=== PATIENT | male | born 1960 | race Caucasian/White ===

== ENCOUNTER → 2023-11-19 15:37 | Outpatient (REF) | payer OTHER, SELFPAY | LOC: RAD 15:37 | PROVIDERS: ATTENDING PHYSICIAN Nurse Practitioner Family; FAMILY PHYSICIAN Internal Medicine | DX: M25.561 Pain in right knee (principal); M25.562 Pain in left knee | CPT/HCPCS: 73564 ==

== ENCOUNTER 2025-01-06 06:20 | Day surgery (SDC) | payer OTHER, SELFPAY | END 2025-01-06 09:35 | disposition home or self-care (01) | LOC: GI 06:20 | PROVIDERS: ATTENDING PHYSICIAN Internal Medicine Gastroenterology | DX: Z12.11 Encounter for screening for malignant neoplasm of colon (principal); K57.30 Diverticulosis of large intestine without perforation or abscess without bleeding; D12.2 Benign neoplasm of ascending colon; K63.5 Polyp of colon; K62.1 Rectal polyp; Z86.0100 Personal history of colon polyps, unspecified; Z80.0 Family history of malignant neoplasm of digestive organs | CPT/HCPCS: 45385; 45380; 88305 ==

== ENCOUNTER 2025-02-16 20:04 | Emergency (ER) | payer OTHER, SELFPAY ==
[2025-02-16 20:05] VITALS: BP 162/84
[2025-02-16 20:27] LABS: Urine Albumin 1+ (Neg - Trace); Urine Bilirubin Negative (Negative); Urine Character Clear (Clear); Urine Color Yellow; Urine Glucose Negative (Negative); Urine Ketone Negative (Negative); Urine Leukocyte 2+ (Negative); Urine Nitrite Negative (Negative); Urine Occult Blood 4+ (Negative); Urine Urobilinogen Negative (Neg - 1+)
[2025-02-16 20:51] LABS: Urine Bacteria Few (Negative)
[2025-02-16 20:59] LABS: % Basophils 0.3 % (0-2); % Eosinophils 0.7 % (0-6); % Immature Granulocytes 0.3 % (0-0.5); % Lymphocytes 20.3 % (20.5-51.1); % Monocytes 6.6 % (1.7-9.3); % Neutrophils 71.8 % (42.2-75.2); Absolute Eosinophils 0.1 10^3/uL (0-0.7); Absolute Lymphocytes 1.4 10^3/uL (1.2-3.4); Absolute Monocytes 0.5 10^3/uL (0.1-0.6); Absolute Neutrophils 4.9 10^3/uL (1.4-6.5); Hematocrit 42.3 % (39.0-52.0); Hemoglobin 14.8 g/dL (13.0-18.0); Mean Corpuscular Hgb 30.6 pg (27.0-31.0); Mean Corpuscular Volume 87.6 fL (80.0-94.0); Mean Platelet Volume 8.8 fL (7.4-10.4); Nucleated Red Blood Cells % 0 % (-); Platelet Count 182 10^3/uL (130-400); Red Blood Cell Count 4.83 10^6/uL (4.70-6.10); Red Cell Dist. Width 11.6 % (11.5-14.5); White Blood Cell Count 6.9 10^3/uL (4.8-10.8)
[2025-02-16 21:14] LABS: ALT (SGPT) 22 U/L (0-50); AST (SGOT) 22 U/L (17-59); Albumin 4.4 g/dl (3.5-5.0); Alkaline Phosphatase 71 U/L (38-126); Blood Urea Nitrogen 41 mg/dl (9-20); Calcium 9.4 mg/dl (8.4-10.2); Carbon Dioxide 23 mmol/L (22-30); Chloride 108 mmol/L (98-107); Glucose 96 mg/dl (70-99); Potassium 4.8 mmol/L (3.5-5.1); Sodium 138 mmol/L (135-145); Total Bilirubin 0.9 mg/dl (0.2-1.3); Total Protein 6.6 g/dl (6.3-8.2); eGFR 48.11
[2025-02-16] MEDS: PERCOCET 5/325 1 TABLET PO (21:37)
--- NOTE | 2025-02-17 00:07 | ED.GENMED ---
History of Present Illness
General
Chief Complaint: Flank Pain
Source: patient
Exam Limitations: none
Time Seen by Provider: 02/17/25 00:03
Nursing documentation reviewed up to this point in time: agreed with
History of Present Illness
History of Present Illness:
Note:
CHIEF COMPLAINT(S)
Right-sided low back pain radiating down the leg.
HISTORY OF PRESENT ILLNESS
The patient is a 64-year-old male with pmh of htn, hlp, who reports experiencing right-sided low back pain that began after lifting heavy cabinets and worsened after sitting for lunch about an hour later. The pain is described as a 'little ping in
the back' that progressively worsened, with the inability to find comfort until after using a heating pad, which provided temporary relief. Despite using a heating pad and massaging the area, the pain persisted and radiated down the leg, but walking
seems to alleviate the discomfort. The patient denies any numbness or tingling but describes the pain as sometimes feeling similar to spasms. A computed tomography scan was performed, and no kidney stones or concerning bony abnormalities were found.
It appears to be a muscular sprain. The patient also reports a history of stage 3 chronic kidney disease and dehydration, as indicated by an elevated chemistry panel on blood work, suggesting further testing in the following week. Patient has not
tried anything for the pain. He denies urinary or fecal incontinence, genital paresthesias, fevers or chills, burning with urination, pelvic pain, abdominal pain.
ADDITIONAL HISTORY OBTAINED FROM SOURCES OTHER THAN THE PATIENT
According to previous emergency room records, the patients imaging showed a normal appendix and an unremarkable gallbladder, ruling out other intra-abdominal causes for pain.
CHRONIC MEDICAL CONDITIONS SIGNIFICANTLY AFFECTING CARE
Stage 3 chronic kidney disease:
Initially I was concerned about an BETO of unclear origin and wanted to start fluids however patient states that he already follows with nephrology and was diagnosed with CKD III. Patient has repeat blood work already scheduled next week with his
foreign banknote teller.
PHYSICAL EXAM
General: Patient is well appearing and in no acute distress; non-toxic
Skin: Warm and dry, no rashes or lesions
Head: Normocephalic, atraumatic
Eyes: Sclera non-icteric. EOMs intact.
Cardiac: Regular rate
Pulm: Normal respiratory effort
Abdomen: No abdominal tenderness to palpation
Musculoskeletal: Right sided paralumbar tenderness noted to palpation, no midline spinal tenderness
Neuro: CN II-XII intact, no focal neurologic deficits. 5/5 strength in bilateral lower extremities
Psychiatric: Appropriate mood and affect.
PROBLEM LIST
Acute Problems:
- Right-sided low back pain, likely muscular in nature
Chronic Problems:
- Stage 3 chronic kidney disease
PLAN
1. Administer a dose of a long-acting muscle relaxant (flexeril) and consider prescribing it for overnight use for pain management.
2. Apply lidocaine patch to the affected area for additional pain relief.
3. Follow-up with foreign banknote teller as scheduled for chronic kidney disease management.
4. Ensure adequate hydration to address elevated kidney function test levels.
5. Blood work to be repeated next week as per patients schedule.
DIFFERENTIAL DIAGNOSIS
The Differential Diagnosis includes, in no particular order and is not limited to:
1. Muscular sprain or strain
2. Herniated intervertebral disc
3. Sciatica
4. Spinal stenosis
5. Osteoarthritis of the spine
6. Radiculopathy
7. Pyelonephritis
8. Renal colic
9. Vertebral fracture
10. Ankylosing spondylitis
DISPOSITION/MDM
The patient is a 64-year-old male with pmh of htn, hlp, who reports experiencing right-sided low back pain that began after lifting heavy cabinets and worsened after sitting for lunch about an hour later. Pain seems to improve with use of OTC pain
meds as well as use of heat. Pain also improves with walking. He has no associated abdominal symptoms, no nausea or vomiting, no fevers or chills, no urinary or fecal incontinence, no troubles ambulating no weakness in lower extremities. He did
have a CAT scan prior to my assessment which was negative for kidney stone or other intra-abdominal pathology. Suspect paralumbar muscle sprain. Patient given muscle relaxant. Patient stable for discharge. Return precautions discussed.
Review of Systems
Review of Systems
All Other Systems: ROS reviewed and negative except as documented in HPI and ROS
Phy Exam
Physical Exam
Physical Exam:
See HPI
Course
Orders/Labs/Results
Orders:
Orders
02/16/25 20:13
Urinalysis Reflex To Culture Urgent
Date Specimen was Collected: 02/16/25
Time Specimen was Collected: 20:09
Urine Microscopic Reflex Cult Urgent
Urine Culture Urgent
MICHAEL Source: U
Specimen Description:
Date Specimen was Collected: 02/16/25
Time Specimen was Collected: 20:09
02/16/25 20:51
Complete Blood Count/With Diff Urgent
Comprehensive Metabolic Panel Urgent
02/16/25 21:15
CT Abd/pel Without Iv Or Oral Urgent
Comment:
Reason For Exam: right flank pain
02/16/25 21:21
Ketorolac [Toradol] 30 mg IM NOW STA
02/16/25 21:35
Oxycodone/Acetaminophen [Percocet 5/325] 1 tablet PO NOW STA
02/17/25 00:16
Cyclobenzaprine HCl [Flexeril] 10 mg PO NOW STA
02/17/25 00:17
Lidocaine [Lidocaine 4% Patch] 1 patch TOPICAL DAILY ONE
Apply Lidocaine patch(s) to:: right paralumbar
Abnormal Lab Results
02/16/25 02/16/25
20:13 20:51
Lymphocytes % 20.3 L %
(20.5-51.1)
Chloride 108 H mmol/L
(98-107)
BUN 41 H mg/dl
(9-20)
Creatinine 1.6 H mg/dL
(0.7-1.3)
Ur Occult Blood Reflex 4+ A
(Negative)
Leukocyte Esterase Rfl 2+ A
(Negative)
Urine RBC 11-15 A /HPF
(0-2)
Urine Bacteria (Reflex) Few A
(Negative)
Urine Albumin (Reflex) 1+ A
(Neg - Trace)
02/16/25 20:51
02/16/25 20:51
Vital Signs
Initial and Last Documented VS:
Initial Vital Signs
Temp Pulse Resp BP Pulse Ox
97.6 F 63 18 162/84 100
02/16/25 20:05 02/16/25 20:05 02/16/25 20:05 02/16/25 20:05 02/16/25 20:05
Last Documented Vital Signs
Temp Pulse Resp BP Pulse Ox
97.6 F 70 18 138/89 98
02/16/25 20:05 02/17/25 01:16 02/17/25 01:16 02/17/25 01:16 02/17/25 01:16
MDM/Problems Addressed
Differential Diagnosis Includes:
See HPI
MDM/Problems Addressed:
See HPI
Chronic conditions affecting care:
Hypertension, hyperlipidemia
*Pulse Oximetry
Patient hypoxic: no
*Critical Care Note
Total Time (30-74mins, 75-104mins- exclusive of procedures): Not Applicable
Data Reviewed
Review of Other/Old Records Reveals: Records (Reviewed record from 01/06/2025 patient seen for colonoscopy, had polyp removed)
Source: patient and records
ED Attending Note
-
Portions of this chart may have been created with voice recognition software.� Occasional wrong word or��sound alike� substitutions may have occurred due to the inherent limitations of voice recognition software.
Discharge Plan
Departure
Patient Disposition: Home (Routine Discharge)
Date of Disposition: 02/17/25
Time of Disposition: 01:03
Patient with high blood pressure during this ER visit?: Yes
Condition: Good
Discharge Problem:
Acute lumbar myofascial strain, UTI (urinary tract infection), Chronic kidney disease (CKD), stage 3
Instructions: Flank Pain (DC), BLOOD PRESSURE
Prescriptions:
New
cefpodoxime 200 mg tablet
200 mg PO BID 7 Days Qty: 14 0RF
lidocaine 5 % adhesive patch,medicated
1 patch topical DAILY Qty: 30 0RF
cyclobenzaprine 10 mg tablet
10 mg PO TIDPRN PRN (Reason: muscle spasm) Qty: 13 0RF
No Action
atorvastatin [Lipitor] 10 MG tablet
10 mg PO DAILY
levothyroxine 88 MCG tablet
88 mcg PO DAILY@0700
tamsulosin 0.4 MG capsule
0.4 mg PO DAILY
lisinopril 10 MG tablet
10 mg PO DAILY
aspirin 81 MG tablet
81 mg PO DAILY
Activity Restrictions/Additional Instructions:
Please follow up with your urologist and foreign banknote teller, please have your blood work repeated as scheduled next week,
Please stay well hydrated.
PLEASE RETURN EMERGENCY DEPARTMENT SHOULD YOU DEVELOP AN ACUTE WORSENING OF YOUR SYMPTOMS, FEVERS OR CHILLS, ABDOMINAL PAIN, INTRACTABLE NAUSEA OR VOMITING, URINARY OR FECAL INCONTINENCE, GENITAL PARESTHESIAS, INABILITY TO AMBULATE, ANY SIGNS OR
SYMPTOMS WORRISOME NEW
Interventions
Interventions:
*Risk Screen - Suicide Last Done: 02/16/25 20:05
*General Assessment Last Done: 02/16/25 20:05
*Neglect/Abuse Screening Last Done: 02/16/25 20:05
*ED- Fall Risk Assessment Last Done: 02/17/25 01:17
*Nursing Disposition Last Done: 02/17/25 01:17
CT-Mqipvu-Lrlmxdqxwh Assessment Last Done: 02/17/25 01:00
ED-Male Genitourinary Assessment Last Done: 02/17/25 01:00
Discharge Date and Time
Discharge Date/Time: 02/17/25 01:18
Print Language: MONTSERRATIAN
[2025-02-17] MEDS: FLEXERIL 10 MG PO (00:28)
[2025-02-17] MEDS: LIDOCAINE 4% PATCH 1 PATCH TOPICAL (00:28)
[2025-02-17 01:16] VITALS: BP 138/89
== END 2025-02-17 01:18 | disposition home or self-care (01) ==
LOC: EMR 20:04
PROVIDERS: Emergency Medicine; EMERGENCY PHYSICIAN Emergency Medicine; FAMILY PHYSICIAN Nurse Practitioner Family
DX: S39.012A Strain of muscle, fascia and tendon of lower back, initial encounter (principal); X50.0XXA Overexertion from strenuous movement or load, initial encounter; N18.30 Chronic kidney disease, stage 3 unspecified; N39.0 Urinary tract infection, site not specified; I12.9 Hypertensive chronic kidney disease with stage 1 through stage 4 chronic kidney disease, or unspecified chronic kidney disease; E78.5 Hyperlipidemia, unspecified
CPT/HCPCS: 99285; 74176; 80053; 81003; 81015; 85025; 87086